=== PATIENT | female | born 2000 | race Hispanic/Latino ===

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

== ENCOUNTER → 2020-10-20 11:08 | Outpatient (CLI) | payer OTHER, SELFPAY ==
[2020-10-20] MEDS: COVID-19 VACC #1, MRNA(MOD) 100 MCG/0.5 ML VIAL IM (11:20)
== END ==
PROVIDERS: PCP Family Medicine; Visit Provider Internal Medicine
DX: Z23 Encounter for immunization (principal)
CPT/HCPCS: 0011A; 91301

== ENCOUNTER → 2024-12-11 15:16 | Outpatient (CLI) | payer OTHER, SELFPAY | PROVIDERS: Visit Provider Nurse Practitioner Family | DX: J02.9 Acute pharyngitis, unspecified (principal) | CPT/HCPCS: 87070 ==

== ENCOUNTER → 2024-12-24 15:26 | Outpatient (CLI) | payer OTHER, SELFPAY ==
[2024-12-24 15:45] LABS: Add Manual Diff / Slide Review NO; Hematocrit 34.6 %; Hemoglobin 12.0 g/dL; Lymphocytes Absolute Auto 2000 /uL; Mean Corpuscular HGB Conc 34.8 %; Mean Corpuscular Hemoglobin 30.5 PG; Mean Corpuscular Volume 87.6 fL; Platelet Count 384 X10^3/uL
[2024-12-24 20:33] LABS: Alanine Aminotransferase 26 IU/L; Albumin 4.7 g/dL; Albumin Globulin Ratio 1.6; Alkaline Phosphatase 63 U/L; Blood Urea Nitrogen 8 mg/dL; Calcium 9.4 mg/dL; Carbon Dioxide 21 mmol/L; Chloride 106 mmol/L; Estimated Glomerular Filt Rate 0 mL/min; Globulin 2.9 g/dL; Glucose 89 mg/dL; HEMOLYSIS < 15; Potassium 4.1 mmol/L; Sodium 141 mmol/L; Total Protein 7.6 g/dL
[2024-12-24 20:35] LABS: HEMOLYSIS < 15; Iron 51 ug/dL
[2024-12-24 20:46] LABS: Percent Iron Saturation 13 %; Total Iron Binding Capacity 378 ug/dL; Transferrin 310 mg/dL
[2024-12-24 21:04] LABS: TSH w/ Reflex to FT4 2.87 uIU/mL
[2024-12-24 21:08] LABS: Ferritin 18 ng/mL
== END ==
PROVIDERS: PCP Student in an Organized Health Care Education/Training Program; Referring Provider Physician Assistant; Visit Provider Physician Assistant
DX: M79.10 Myalgia, unspecified site (principal); R53.83 Other fatigue
CPT/HCPCS: 36415; 80053; 82728; 83540; 83550; 84443; 85025

== ENCOUNTER → 2025-03-25 11:29 | Outpatient (CLI) | payer OTHER, SELFPAY ==
[2025-03-25 13:01] LABS: COVID-19 CEPHEID 4-PLEX PCR Negative; Influenza A - CEPHEID Flu A NEGATIVE; Influenza B - CEPHEID Flu B NEGATIVE
== END ==
PROVIDERS: PCP Student in an Organized Health Care Education/Training Program; Visit Provider Chiropractor
DX: R39.15 Urgency of urination (principal); J02.9 Acute pharyngitis, unspecified
CPT/HCPCS: 87086; 87637